=== PATIENT | male | born 1955 | race Two or more races ===

== ENCOUNTER 2023-04-18 11:52 | Outpatient (CLI) | payer MEDICARE, BC ==
[2023-04-18 12:53] LABS: BASOPHILS % (AUTO) 0.6 % (0.0-2.0); EOSINOPHILS % (AUTO) 1.9 % (0.0-6.0); HEMATOCRIT 42 % (39-51); HEMOGLOBIN 13.9 g/dL (13.5-17.5); LYMPHOCYTES # (AUTO) 1.1 K/uL (0.8-4.8); LYMPHOCYTES % (AUTO) 20.9 % (20.0-44.0); MEAN CORPUSCULAR HGB CONC 33 g/dl (31.0-36.0); MEAN CORPUSCULAR VOLUME 86 fL (80-96); MONOCYTES # (AUTO) 0.3 K/uL (0.1-1.30); MONOCYTES % (AUTO) 6.2 % (2.0-12.0); NEUTROPHILS # (AUTO) 3.9 K/uL (1.8-8.9); NEUTROPHILS % (AUTO) 70.4 % (43.0-81.0); PLATELET COUNT (AUTO) 180 K/uL (150-450); RED BLOOD CELL COUNT(AUTO) 4.89 MIL/uL (4.5-6.0); WHITE BLOOD COUNT (AUTO) 5.5 K/uL (4.3-11.0)
[2023-04-18 13:00] LABS: BILIRUBIN,URINE NEGATIVE (NEGATIVE); COLOR,URINE YELLOW (YELLOW); LEUKOCYTE ESTERASE ,URINE NEGATIVE (NEGATIVE); NITRITE, URINE NEGATIVE (NEGATIVE); PROTEIN,URINE NEGATIVE (NEGATIVE); UGLUCOSE 3+ mg/dL (NEGATIVE); UROBILINOGEN,URINE 0.2 EU/dL (0.2)
[2023-04-18 13:01] LABS: BACTERIA,URINE Rare /HPF (None Seen); SQUAMOUS EPITHELIAL CELL,UR Few /HPF (None Seen); WBC,URINE 0-2 /HPF (0-3)
[2023-04-18 13:23] LABS: URINE TOTAL PROTEIN 7.1 mg/dL (0-11.9)
[2023-04-18 13:49] LABS: C-REACTIVE PROTEIN < 0.2 mg/dL (0.0-0.9); CHOLESTEROL 111 mg/dL (<200); FREE T4 (FREE THYROXINE) 1.05 ng/dL (0.76-1.46); HDL CHOLESTEROL 45 mg/dL (40-60); LDL 57 mg/dL (0-99); THYROID STIMULATING HORMONE 1.224 uIU/mL (0.358-3.74); TRIGLYCERIDES 110 mg/dL (30-150)
[2023-04-18 14:16] LABS: ALANINE AMINOTRANSFERASE 30 U/L (12-78); ALBUMIN 4.1 g/dL (3.4-5.0); ALKALINE PHOSPHATASE 65 U/L (46-116); ASPARTATE AMINOTRANSFERASE 18 U/L (15-37); BILIRUBIN,TOTAL 0.5 mg/dL (0.2-1.0); CALCIUM, SERUM 9.3 mg/dL (8.5-10.1); CARBON DIOXIDE 26 mmol/L (21-32); CHLORIDE 99 mmol/L (98-107); CREATININE 1.4 mg/dL (0.6-1.3); GLUCOSE 259 mg/dL (74-106); MAGNESIUM 2.1 mg/dL (1.8-2.4); PHOSPHORUS 3.6 mg/dL (2.5-4.9); POTASSIUM 4.1 mmol/L (3.5-5.1); SODIUM SERUM 133 mmol/L (136-145); TOTAL PROTEIN, SERUM 8.1 g/dL (6.4-8.2); UREA NITROGEN, BLOOD 24 mg/dL (7-18)
[2023-04-19 11:07] LABS: COMPLEMENT C3, SERUM 134 mg/dL (82-167); COMPLEMENT C4, SERUM 30 mg/dL (12-38)
[2023-04-19 14:07] LABS: *IFE A/G RATIO 1.1 (0.7-1.7); *IFE ALPHA-2-GLOBULIN 0.8 g/dL (0.4-1.0)
[2023-04-20 07:07] LABS: *PEUR ALBUMIN 61.4 % (.); *PEUR ALPHA-1-GLOBULIN 4.4 % (.); *PEUR ALPHA-2-GLOBULIN 5.5 % (.); *PEUR BETA GLOBULIN 18.7 % (.)
== END 2023-04-18 23:59 | disposition home or self-care (01) ==
LOC: MSC 11:52
PROVIDERS: ATTEND Internal Medicine
DX: E11.22 Type 2 diabetes mellitus with diabetic chronic kidney disease (principal); I12.9 Hypertensive chronic kidney disease with stage 1 through stage 4 chronic kidney disease, or unspecified chronic kidney disease; N18.9 Chronic kidney disease, unspecified; E83.9 Disorder of mineral metabolism, unspecified; M89.9 Disorder of bone, unspecified; R07.9 Chest pain, unspecified; R07.81 Pleurodynia; E78.5 Hyperlipidemia, unspecified; D64.9 Anemia, unspecified; I25.2 Old myocardial infarction; Z79.899 Other long term (current) drug therapy
CPT/HCPCS: 80061; 71111; 85025; 83735; 83036; 84100; 85652; 81001; 36415; 84439; 82746; 84443; 82607; 80053; 86140; 86038; 86160; 82306; 83970; 82043; 82570; 84165; 84166; 84156 ×2; G0463

== ENCOUNTER 2023-04-21 10:53 | Outpatient (CLI) | payer MEDICARE, BC | END 2023-04-21 23:59 | disposition home or self-care (01) | LOC: US 10:53 | PROVIDERS: ATTEND Internal Medicine | DX: N18.9 Chronic kidney disease, unspecified (principal) | CPT/HCPCS: 76770-TC ==

== ENCOUNTER 2023-04-25 11:30 | Outpatient (CLI) | payer MEDICARE, BC | END 2023-04-25 23:59 | disposition home or self-care (01) | LOC: MSC 11:30 | PROVIDERS: ATTEND Internal Medicine | DX: N28.9 Disorder of kidney and ureter, unspecified (principal); I25.2 Old myocardial infarction; I10 Essential (primary) hypertension; E11.9 Type 2 diabetes mellitus without complications; E83.9 Disorder of mineral metabolism, unspecified; M89.9 Disorder of bone, unspecified; R07.89 Other chest pain; E78.5 Hyperlipidemia, unspecified; G47.00 Insomnia, unspecified ==